=== PATIENT | male | born 1985 | race Caucasian/White ===

== ENCOUNTER 2018-06-14 06:29 | Emergency (ER) | payer MEDICAID, SELFPAY ==
[2018-06-14 06:31] VITALS: BP 147/100; PULSE 64; RESP 16; TEMP 36.3; O2SAT 96
--- NOTE | 2018-06-14 06:33 | W.ED.GENAD ---
Discharge Plan Disposition Patient Disposition: HOME Condition: Stable Discharge Details Chief Complaint: EyeProblem Clinical Impression: Abrasion of cornea, left Primary Care Provider: None,None ED Provider: Dave Ward Home Meds and New Rx's Prescriptions: New erythromycin 5 mg/gram (0.5 %) ointment 1 applic OP TID 5 Days Qty: 1 RF: 0 Discharge Instructions Instructions: Corneal Abrasion (ED) Additional Instructions: if you are still symptomatic after 2 days follow up with optometry or ophthalmology you can take 1000mg tylenol and 600mg ibuprofen every 6 hours for pain as needed if you have severe worsening pain or vision changes return to the emergency department Medical Decision Making 32 yo male comes in with left eye pain. He states he woke up with tearing of his eye and pain of the medial left eye. 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 Doesn't use contacts, 20/20 on exam in both eyes. He has mild conjunctival injection of the left medial eye, no foreign body on exam, iop 10, perrl, no iritis, and has immediate relief of pain with tetracaine. Has a small 1mm or so corneal abrasion over the medial left conjunctiva. Will have him start abx ointment and advised if still symptomatic in 2 days to see gear nicker Differential Diagnosis corneal abrasion, conjuncitivits, foreign body HPI General Mode of arrival: ambulatory. Date/Time Provider Initiated Documentation: 06/14/18 06:30. Limitations to Documentation: no limitations. Information obtained by: patient. History of Present Illness 32 year old M presents to the emergency department with the chief complaint of left eye pain, described as moderate, Quality is described as aching, and is localized to the eyes and left. Patient started experiencing this day(s) (1) and it has been constant. No relieving factors improve symptom(s), No exacerbating factors reported . Patient notes no other symptoms.. Patient did receive the following treatments prior to arrival, none Related Data Home Medications Medication Instructions Recorded Confirmed erythromycin 1 applic OP TID 5 Days #1 gm 06/14/18 Previous Rx's Medication Instructions Recorded erythromycin 1 applic OP TID 5 Days #1 gm 06/14/18 Allergies Allergy/AdvReac Type Severity Reaction Status Date / Time No Known Allergies Allergy Unverified 06/14/18 06:35 Review of Systems Review of Systems All systems reviewed & are unremarkable except as noted in HPI and below Constitutional Denies chills and Denies fever(s) Cardiovascular Denies chest pain and Denies dyspnea Respiratory Denies cough and Denies dyspnea Gastrointestinal Denies abdominal pain, Denies nausea and Denies vomiting Musculoskeletal Denies joint swelling PFS Social History Smoking/Tobacco Use Status: Current every day Tobacco Type: cigarettes Drug use: Daily Substance use type: former substance user and marijuana Do you feel safe at home: Yes Do you feel safe in your relationship?: Yes Exam Const General: no acute distress Orientation: alert HENMT Head: normal to inspection Ears: external ears normal General nose exam: external nose normal Mouth: moist mucous membranes Eyes Periorbital: periorbital findings normal Eyelids: eyelids normal Pupils: PERRL Neck Neck: normal visual inspection Resp Effort & Inspection: normal respiratory effort and able to speak in complete sentences Cardio Rate: regular rate Skin General skin exam: no rashes or lesions noted Neuro General: alert and oriented x3 Extrem General: normal to inspection Psych Mental Status: mental status grossly normal
--- NOTE | 2018-06-14 06:43 | ED.GENADUL_ITS ---
Discharge Plan Disposition Patient Disposition: HOME Condition: Stable Discharge Details Chief Complaint: EyeProblem Clinical Impression: Abrasion of cornea, left Primary Care Provider: None,None ED Provider: Dave Ward Home Meds and New Rx's Prescriptions: New erythromycin 5 mg/gram (0.5 %) ointment 1 applic OP TID 5 Days Qty: 1 RF: 0 Discharge Instructions Instructions: Corneal Abrasion (ED) Additional Instructions: if you are still symptomatic after 2 days follow up with optometry or ophthalmology you can take 1000mg tylenol and 600mg ibuprofen every 6 hours for pain as needed if you have severe worsening pain or vision changes return to the emergency department Medical Decision Making 32 yo male comes in with left eye pain. He states he woke up with tearing of his eye and pain of the medial left eye. 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 Doesn't use contacts, 20/20 on exam in both eyes. He has mild conjunctival injection of the left medial eye, no foreign body on exam, iop 10, perrl, no iritis, and has immediate relief of pain with tetracaine. Has a small 1mm or so corneal abrasion over the medial left conjunctiva. Will have him start abx ointment and advised if still symptomatic in 2 days to see dictaphone typist Differential Diagnosis corneal abrasion, conjuncitivits, foreign body HPI General Mode of arrival: ambulatory . Date/Time Provider Initiated Documentation: 06/14/18 06:30 . Limitations to Documentation: no limitations . Information obtained by: patient . History of Present Illness 32 year old M presents to the emergency department with the chief complaint of left eye pain, described as moderate, Quality is described as aching, and is localized to the eyes and left. Patient started experiencing this day(s) (1) and it has been constant. No relieving factors improve symptom(s), No exacerbating factors reported . Patient notes no other symptoms.. Patient did receive the following treatments prior to arrival, none Related Data Home Medications Medication Instructions Recorded Confirmed erythromycin 1 applic OP TID 5 Days #1 gm 06/14/18 Previous Rx's Medication Instructions Recorded erythromycin 1 applic OP TID 5 Days #1 gm 06/14/18 Allergies Allergy/AdvReac Type Severity Reaction Status Date / Time No Known Allergies Allergy Unverified 06/14/18 06:35 Review of Systems Review of Systems All systems reviewed & are unremarkable except as noted in HPI and below Constitutional Denies chills and Denies fever(s) Cardiovascular Denies chest pain and Denies dyspnea Respiratory Denies cough and Denies dyspnea Gastrointestinal Denies abdominal pain, Denies nausea and Denies vomiting Musculoskeletal Denies joint swelling PFS Social History Smoking/Tobacco Use Status: Current every day Tobacco Type: cigarettes Drug use: Daily Substance use type: former substance user and marijuana Do you feel safe at home: Yes Do you feel safe in your relationship?: Yes Exam Const General: no acute distress Orientation: alert HENMT Head: normal to inspection Ears: external ears normal General nose exam: external nose normal Mouth: moist mucous membranes Eyes Periorbital: periorbital findings normal Eyelids: eyelids normal Pupils: PERRL Neck Neck: normal visual inspection Resp Effort & Inspection: normal respiratory effort and able to speak in complete sentences Cardio Rate: regular rate Skin General skin exam: no rashes or lesions noted Neuro General: alert and oriented x3 Extrem General: normal to inspection Psych Mental Status: mental status grossly normal
[2018-06-14 06:51] VITALS: BP 132/88; PULSE 62; RESP 16; TEMP 36.5; O2SAT 97
== END 2018-06-14 06:50 | disposition home or self-care (01) ==
PROVIDERS: Emergency Provider Emergency Medicine
DX: S05.02XA Injury of conjunctiva and corneal abrasion without foreign body, left eye, initial encounter (principal)
CPT/HCPCS: 99283

== ENCOUNTER 2018-09-18 12:16 | Emergency (ER) | payer MEDICAID, SELFPAY ==
[2018-09-18 12:19] VITALS: BP 159/92; PULSE 66; RESP 18; TEMP 36.6; O2SAT 97
--- NOTE | 2018-09-18 12:29 | W.ED.GENAD ---
Discharge Plan Disposition Patient Disposition: HOME Condition: Stable Discharge Details Chief Complaint: Nk/Back Pain Clinical Impression: Lumbar strain Primary Care Provider: None,None ED Provider: Dave Ward Home Meds and New Rx's Prescriptions: New diazepam [Valium] 5 mg tablet 5 mg PO TID-QID PRN (Reason: muscle spasm) Qty: 14 RF: 0 Discharge Instructions Instructions: Diazepam (By mouth), Low Back Strain (ED) Additional Instructions: you can take 1000mg tylenol and 600mg ibuprofen every 6 hours for pain as needed do not drink alcohol or operate heavy machinery if you take the valium follow up with a primary care provider if symptoms continue in 1-2 weeks, I have referred you to see a primary care if you have fevers, inability to urinate or new symptoms such as abdominal pain return to the emergency department physical therapy can help with this pain, call them to arrange an appointment Stand Alone Forms: Physical Therapy Referral Medical Decision Making 33 yo male with no chronic medical problems though states he has a hx of disc herniations, no prior surgeries, denies ivdu, comes in with worsening back pain and thinks it may have started after he was shoveling rocks. Denies falls or other trauma. He is ambulating with normal gait and no saddle anesthesia on exam, no findings to suggest cauda equina and no fevers or infectious symptoms so doubt sea. Has no abdominal tenderness to suggest pathology such as appendicitis and no flank pain to suggest kidney stone. Pain is throughout the lower back and has full rom, does have pain in lower back left lateral to midline, could be muscle strain vs spasm also could be disc herniation. will have him take nsaids and tylenol and try a muscle relaxer. will refer for pcp within 1-2 weeks. return precautions given Differential Diagnosis disc herniation, strain, muscle spasm HPI General Mode of arrival: ambulatory. Date/Time Provider Initiated Documentation: 09/18/18 12:17. Limitations to Documentation: no limitations. Information obtained by: patient. History of Present Illness 33 year old M presents to the emergency department with the chief complaint of back pain, described as moderate, Quality is described as aching, Patient reports radiation to back. Patient started experiencing this week(s) (1) and it has been constant. No relieving factors improve symptom(s), No exacerbating factors reported . Patient notes no other symptoms.. Patient did receive the following treatments prior to arrival, none Related Data Home Medications Medication Instructions Recorded Confirmed diazepam [Valium] 5 mg PO TID-QID PRN #14 tab 09/18/18 Previous Rx's Medication Instructions Recorded diazepam [Valium] 5 mg PO TID-QID PRN #14 tab 09/18/18 Allergies Allergy/AdvReac Type Severity Reaction Status Date / Time No Known Allergies Allergy Unverified 09/18/18 12:22 General Stated Complaint: Nk/Back Pain CRISTHIAN: 4 Review of Systems Review of Systems All systems reviewed & are unremarkable except as noted in HPI and below Constitutional Denies chills, Denies fever(s) and Denies weakness Cardiovascular Denies chest pain and Denies dyspnea Respiratory Denies cough and Denies dyspnea Gastrointestinal Denies abdominal pain, Denies nausea and Denies vomiting Integumentary/Breasts Denies rash Neurologic Denies weakness COUNT INCLUDES THE [facility] Social History Smoking/Tobacco Use Status: Current every day Tobacco Type: cigarettes Drug use: Daily Substance use type: former substance user and marijuana Do you feel safe at home: Yes Do you feel safe in your relationship?: Yes Exam Const General: no acute distress Orientation: alert HENMT Head: normal to inspection Ears: external ears normal General nose exam: external nose normal Mouth: moist mucous membranes Eyes General: appearance normal, both eyes and all related structures Neck Neck: normal visual inspection Resp Effort & Inspection: normal respiratory effort and able to speak in complete sentences Cardio Rate: regular rate Back/Spine/Pelvis Back: no CVA tenderness Skin General skin exam: no rashes or lesions noted Neuro General: alert and oriented x3 Extrem General: normal to inspection Psych Mental Status: mental status grossly normal Course Vital Signs Temperature 36.6 C 09/18/18 12:19 Pulse 66 09/18/18 12:19 Respiratory Rate 18 09/18/18 12:19 Blood Pressure 159/92 H 09/18/18 12:19 Pulse Oximetry 97 09/18/18 12:19 Temperature 36.6 C 09/18/18 12:19 Temperature Source Temporal Artery Scan 09/18/18 12:19 Pulse 66 09/18/18 12:19 Respiratory Rate 18 09/18/18 12:19 Respiratory Effort Non-Labored 09/18/18 12:21 Blood Pressure 159/92 H 09/18/18 12:19 Blood Pressure Position Sitting 09/18/18 12:19 Pulse Oximetry 97 09/18/18 12:19 Oxygen Delivery Method Room Air 09/18/18 12:19 Oxygen Flow Rate 0 09/18/18 12:19 Pain Level 4 09/18/18 12:21
[2018-09-18 12:35] VITALS: BP 159/92; PULSE 66; RESP 18; TEMP 36.6; O2SAT 97
--- NOTE | 2018-09-18 12:35 | ED.GENADUL_ITS ---
Discharge Plan Disposition Patient Disposition: HOME Condition: Stable Discharge Details Chief Complaint: Nk/Back Pain Clinical Impression: Lumbar strain Primary Care Provider: None,None ED Provider: Dave Ward Home Meds and New Rx's Prescriptions: New diazepam [Valium] 5 mg tablet 5 mg PO TID-QID PRN (Reason: muscle spasm) Qty: 14 RF: 0 Discharge Instructions Instructions: Diazepam (By mouth), Low Back Strain (ED) Additional Instructions: you can take 1000mg tylenol and 600mg ibuprofen every 6 hours for pain as needed do not drink alcohol or operate heavy machinery if you take the valium follow up with a primary care provider if symptoms continue in 1-2 weeks, I have referred you to see a primary care if you have fevers, inability to urinate or new symptoms such as abdominal pain return to the emergency department physical therapy can help with this pain, call them to arrange an appointment Stand Alone Forms: Physical Therapy Referral Medical Decision Making 33 yo male with no chronic medical problems though states he has a hx of disc herniations, no prior surgeries, denies ivdu, comes in with worsening back pain and thinks it may have started after he was shoveling rocks. Denies falls or other trauma. He is ambulating with normal gait and no saddle anesthesia on exam, no findings to suggest cauda equina and no fevers or infectious symptoms so doubt sea. Has no abdominal tenderness to suggest pathology such as appendicitis and no flank pain to suggest kidney stone. Pain is throughout the lower back and has full rom, does have pain in lower back left lateral to midline, could be muscle strain vs spasm also could be disc herniation. will have him take nsaids and tylenol and try a muscle relaxer. will refer for pcp within 1-2 weeks. return precautions given Differential Diagnosis disc herniation, strain, muscle spasm HPI General Mode of arrival: ambulatory . Date/Time Provider Initiated Documentation: 09/18/18 12:17 . Limitations to Documentation: no limitations . Information obtained by: patient . History of Present Illness 33 year old M presents to the emergency department with the chief complaint of back pain, described as moderate, Quality is described as aching, Patient reports radiation to back. Patient started experiencing this week(s) (1) and it has been constant. No relieving factors improve symptom(s), No exacerbating factors reported . Patient notes no other symptoms.. Patient did receive the following treatments prior to arrival, none Related Data Home Medications Medication Instructions Recorded Confirmed diazepam [Valium] 5 mg PO TID-QID PRN #14 tab 09/18/18 Previous Rx's Medication Instructions Recorded diazepam [Valium] 5 mg PO TID-QID PRN #14 tab 09/18/18 Allergies Allergy/AdvReac Type Severity Reaction Status Date / Time No Known Allergies Allergy Unverified 09/18/18 12:22 General Stated Complaint: Nk/Back Pain CRISTHIAN: 4 Review of Systems Review of Systems All systems reviewed & are unremarkable except as noted in HPI and below Constitutional Denies chills, Denies fever(s) and Denies weakness Cardiovascular Denies chest pain and Denies dyspnea Respiratory Denies cough and Denies dyspnea Gastrointestinal Denies abdominal pain, Denies nausea and Denies vomiting Integumentary/Breasts Denies rash Neurologic Denies weakness [facility] Social History Smoking/Tobacco Use Status: Current every day Tobacco Type: cigarettes Drug use: Daily Substance use type: former substance user and marijuana Do you feel safe at home: Yes Do you feel safe in your relationship?: Yes Exam Const General: no acute distress Orientation: alert HENMT Head: normal to inspection Ears: external ears normal General nose exam: external nose normal Mouth: moist mucous membranes Eyes General: appearance normal, both eyes and all related structures Neck Neck: normal visual inspection Resp Effort & Inspection: normal respiratory effort and able to speak in complete sentences Cardio Rate: regular rate Back/Spine/Pelvis Back: no CVA tenderness Skin General skin exam: no rashes or lesions noted Neuro General: alert and oriented x3 Extrem General: normal to inspection Psych Mental Status: mental status grossly normal Course Vital Signs Temperature 36.6 C 09/18/18 12:19 Pulse 66 09/18/18 12:19 Respiratory Rate 18 09/18/18 12:19 Blood Pressure 159/92 H 09/18/18 12:19 Pulse Oximetry 97 09/18/18 12:19 Temperature 36.6 C 09/18/18 12:19 Temperature Source Temporal Artery Scan 09/18/18 12:19 Pulse 66 09/18/18 12:19 Respiratory Rate 18 09/18/18 12:19 Respiratory Effort Non-Labored 09/18/18 12:21 Blood Pressure 159/92 H 09/18/18 12:19 Blood Pressure Position Sitting 09/18/18 12:19 Pulse Oximetry 97 09/18/18 12:19 Oxygen Delivery Method Room Air 09/18/18 12:19 Oxygen Flow Rate 0 09/18/18 12:19 Pain Level 4 09/18/18 12:21
--- NOTE | 2018-09-18 12:38 | NUR.NOTE ---
referral sent to [facility] to establish 1-2 wks for back pain. Nursing Note:
== END 2018-09-18 12:41 | disposition home or self-care (01) ==
PROVIDERS: Emergency Provider Emergency Medicine
DX: S39.012A Strain of muscle, fascia and tendon of lower back, initial encounter (principal); X50.0XXA Overexertion from strenuous movement or load, initial encounter
CPT/HCPCS: 99283

== ENCOUNTER 2024-09-22 23:13 | Emergency (ER) | payer SELFPAY ==
[2024-09-22 23:17] VITALS: BP 178/116; PULSE 72; RESP 18; TEMP 35.8; O2SAT 97
--- NOTE | 2024-09-22 23:29 | ED.GENADUL_ITS ---
Discharge Plan Disposition Patient Disposition: Home Condition: Good Discharge Details Clinical Impression: Dermatitis due to plants, including poison donna, sumac, and oak Primary Care Provider: None,None ED Provider: Dave Multani and New Rx's Prescriptions: New prednisone 20 mg tablet 40 mg PO DAILY Qty: 8 0RF Discharge Instructions Instructions: Poison Donna, Poison Sad[place], Poison Sumac ED Additional Instructions: There is a soap called Zanfel which you may obtain [id number] and use to help remove the oil from the skin. You should take diphenhydramine 25 to 50 mg every 6-8 hours to control the itching. The prescribed prednisone will help blunt the reaction. Follow-up with primary care next week if not improving. Return to ED for any involvement of mucosa or eyes, difficulty breathing, other concerns. HPI General Mode of arrival: ambulatory . Date/Time Provider Initiated Documentation: 09/22/24 23:29 . Limitations to Documentation: no limitations . Information obtained by: patient and RN notes reviewed . HPI Narrative: Patient presents to ED with complaint of itching and rash. Patient reports that he first noticed symptoms about 24 hours ago. Had done some outside work with a friend but does not specifically recall getting into poison donna or oak. Initially noticed on his feet and hands but now has a diffusely involving torso and genitals. He has tried calamine lotion without relief. Has not taken anything orally. Denies any type of throat swelling or difficulty breathing, no chest or abdominal pain, no vomiting or diarrhea, no fever. Related Data Home Medications ?Medication ?Instructions ?Recorded ?Confirmed prednisone 20 mg tablet 40 mg (2 x 20 mg) PO DAILY # 8 tabs 09/22/24 Previous Rx's ?Medication ?Instructions ?Recorded prednisone 20 mg tablet 40 mg (2 x 20 mg) PO DAILY # 8 tabs 09/22/24 Allergies Allergy/AdvReac Type Severity Reaction Status Date / Time No Known Allergies Allergy Unverified 09/22/24 23:22 General Stated Complaint: RashLesion CRISTHIAN: 5 Exam Narrative Exam Narrative: Const: WDWN male in NAD. VS per triage. HEENT: NC/AT. Normal facial exam. Neck: Supple. Trachea midline. Lungs: Normal respiratory effort. : Deferred. Neuro: A+O x 3. Normal speech, mentation, gait. Cranial nerves II - XII grossly intact. No gross motor or sensory deficit. Ext: No C/C/E. Skin: Erythematous raised rash some areas in linear pattern, few small vesicles, some areas involving torso and proximal extremities covered in calamine and difficult to see. Course Vital Signs Vital signs: Vital Signs Temperature 96.5 F L 09/22/24 23:17 Pulse 72 09/22/24 23:17 Respiratory Rate 18 09/22/24 23:17 Blood Pressure 178/116 H 09/22/24 23:17 Pulse Oximetry 97 09/22/24 23:17 Temperature 96.5 F L 09/22/24 23:17 Temperature Source Tympanic 09/22/24 23:17 Pulse 72 09/22/24 23:17 Respiratory Rate 18 09/22/24 23:17 Blood Pressure 178/116 H 09/22/24 23:17 Blood Pressure Position Supine 09/22/24 23:17 Pulse Oximetry 97 09/22/24 23:17 Oxygen Delivery Method Room Air 09/22/24 23:17 Oxygen Flow Rate 0 09/22/24 23:17 Pain Level 7 09/22/24 23:17 Medical Decision Making Patient presenting with rash and pruritus consistent with exposure to poison donna or similar plant. Has only used calamine lotion. Will provide diphenhydramine for his pruritus and prednisone to help with the reaction. Recommend buying Zanfel soap to use as directed and attempt to help with symptoms. Prescription for prednisone burst provided. Follow-up with primary care next week if needed. Return precautions provided. [facility] Social History Smoking/Tobacco Use Status: Current every day Tobacco Type: cigarettes and e- cigarettes Smoking risk assessment performed?: Yes Alcohol Intake: current Alcohol Intake frequency: 0-2 drinks per day Alcohol type: beer Drug use: Daily Substance use type: former substance user and marijuana Do you feel safe at home: Yes Do you feel safe in your relationship?: Yes PAWSS Have you Been Recently Intoxicated or Drunk Within the Last 30 days?: Yes Have you Ever Experienced Previous Episodes of Alcohol Withdrawal?: No Have you ever Experienced Withdrawal Seizures?: No Have you ever Experienced Delirium Tremens(DT)s?: No Have you ever undergone Alcohol Rehabilitation Treatment (i.e, inpt ot outpatient treatment programs)?: No Have you ever Experienced Blackouts?: No Have you ever Combined Alcohol with other Downers within the last 90 days?: No Have you ever Combined Alcohol with any other Substance of Abuse during the last 90 days?: No Positive Blood Alcohol level on Presentation? [PCS.BAL]: No Evidence of Increased Autonomic Activity (i.e. HR>120, tremor, sweating, agitation, nausea)?: No Result: 1
[2024-09-22] MEDS: diphenhydrAMINE 25 MG CAP 50 MG PO (23:50)
[2024-09-22] MEDS: predniSONE 20 MG TAB 40 MG PO (23:50)
[2024-09-23 00:09] VITALS: BP 178/116; PULSE 81; RESP 22; TEMP 36.2; O2SAT 98
== END 2024-09-23 00:46 | disposition home or self-care (01) ==
LOC: ER 09-23 00:26
PROVIDERS: Emergency Provider Emergency Medicine
DX: L23.7 Allergic contact dermatitis due to plants, except food (principal)
CPT/HCPCS: 99283 ×2; J7512

== ENCOUNTER 2024-10-22 05:56 | Emergency (ER) | payer SELFPAY ==
[2024-10-22 05:58] VITALS: BP 219/103; PULSE 88; RESP 21; TEMP 35.9; O2SAT 98
--- NOTE | 2024-10-22 06:00 | DI.CT_ITS ---
Exam(s) CT ABDOMEN PELVIS W EXAM: CT ABDOMEN PELVIS W CLINICAL HISTORY: R upper abd/back pain TECHNIQUE: Imaging Protocol: Axial computed tomography images with coronal and sagittal reformatted images were created and reviewed. CONTRAST MATERIAL: Intravenous: Omnipaque 350 Contrast volume:structured data in ml mL Oral: No COMPARISON: CT RENAL COLIC WO CONTRAST from 12/11/2011 CT RENAL COLIC WO CONTRAST from 12/21/2015 FINDINGS: ABDOMEN: Lung Bases: No acute abnormality. Liver: Normal density. There are several small round hypodensities seen in the liver. The largest measures 9 mm. They are too small for further characterization, but likely reflect small cysts. No suspicious hepatic lesions are seen. Portal, Superior Mesenteric, and Splenic Veins: Unremarkable. Gallbladder and Biliary Tract: No radiodense calculus or dilation. Pancreas: Normal density, no abnormal calcifications or inflammatory process. Spleen: Normal. Adrenals: No masses seen. Kidneys: Normal size, contour and axis. There is a 2 mm stone seen in the right aspect of the urinary bladder at the area of the right UVJ. There is mild dilatation of the renal collecting system and delayed enhancement of the right kidney. The findings are consistent with hydronephrosis. Note is made of a 2.3 cm simple cyst in the right kidney. No follow-up is recommended. Abdominal Aorta: Abdominal portion non-dilated. Minimal atherosclerosis is present. Bowel: No obstruction or bowel wall thickening. Appendix is unremarkable. There is no evidence of pneumatosis. The stomach is incompletely distended limiting evaluation. Peritoneal Cavity: No ascites, collection or mesenteric inflammatory response. No free air. Lymph Nodes: Within normal limits. Bones: Within normal limits for the patient's age. Soft Tissues: Unremarkable. PELVIS: Bladder: Symmetric distention, no gross wall thickening. Reproductive Organs: Unremarkable as visualized. Lymph Nodes: Within normal limits. Bones: Within normal limits for the patient's age. IMPRESSION: 1. There is a 2 mm stone on the bladder aspect on the bladder aspect of the right UVJ causing mild hydronephrosis. 2. The preliminary [facility] report was reviewed. RADIATION DOSE DELIVERED: 745.28mGy.cm Total DLP DATA REPOSITORY: All CT scans at this facility are submitted to the National Radiology Data Registry (NRDR) Dose Index Registry (DIR) with the [employer] ([employer]). RADIATION OPTIMIZATION: All CT scans at this facility use at least one of these dose optimization techniques: automated exposure control; mA and/or kV adjustment per patient size (includes targeted exams where dose is matched to clinical indication); or iterative reconstruction.
--- NOTE | 2024-10-22 06:00 | W.ED.GENAD ---
Discharge Plan Disposition Patient Disposition: Home Condition: Good Discharge Details Clinical Impression: Right distal ureteral calculus Primary Care Provider: None,None ED Provider: Dave Multani Meds and New Rx's Prescriptions: New tamsulosin 0.4 mg capsule 0.4 mg PO DAILY Qty: 14 0RF Discharge Instructions Instructions: Kidney Stone, Adult ED Additional Instructions: You were seen for right sided pain and found to have a kidney stone that hopefully will pass on its own. You should drink plenty of fluids and take the tamsulosin to help the stone pass. You may alternate Tylenol with Motrin every 4 hours if needed for pain. Strain your urine so you know when you pass the stone. If you have not passed the stone within the next week you should follow up with urology. Your blood pressure is quite elevated here and it is likely you have underlying high blood pressure. You should really consider establishing care with a primary care physician and have this evaluated. Untreated high blood pressure can lead to stroke and heart attacks. Return to ED for fever, worsening pain, vomiting, other concerns. Referrals: Mike Duckworth MD [ [facility] STAFF PHYSICIAN, Urology] [facility] General Mode of arrival: ambulatory. Date/Time Provider Initiated Documentation: 10/22/24 05:59. Limitations to Documentation: no limitations. Information obtained by: patient and RN notes reviewed. HPI Narrative: Patient presents to ED with right sided abdominal and back pain. Pain began last night, worse this morning. He denies any N/V/D. No fever that he is aware of. No urinary symptoms and no blood in his urine. No chest pain, trouble breathing and no increase pain with breathing. No prevouis abdominal surgeries. Related Data Home Medications ?Medication ?Instructions ?Recorded ?Confirmed tamsulosin 0.4 mg capsule 0.4 mg PO DAILY #14 caps 10/22/24 Previous Rx's ?Medication ?Instructions ?Recorded tamsulosin 0.4 mg capsule 0.4 mg PO DAILY #14 caps 10/22/24 Allergies Allergy/AdvReac Type Severity Reaction Status Date / Time poison irene extract AdvReac Severe Skin Rash Verified 10/22/24 06:06 General CRISTHIAN: 5 Exam Narrative Exam Narrative: Const: WDWN male in NAD. VS per triage. HEENT: NC/AT. Normal facial exam. Neck: Supple. Trachea midline. Lungs: Normal respiratory effort. Lungs are clear. Cor: RRR without murmur. Good radial pulses. GI: Soft/ND. Tender in the RUQ with voluntary guarding. Back: Mild R CVAT Neuro: A+O x 3. Normal speech, mentation, gait. Cranial nerves II - XII grossly intact. No gross motor or sensory deficit. Ext: No C/C/E. Medical Decision Making Patient presenting with RUQ and right lumbar pain that started last night and is worse this morning. He is very tender in the RUQ, with some mild tenderness in the upper lumbar area, ? CVAT. He looks uncomfortable but not toxic. Suspect gallbladder as culprit, though kidney infection/stone also possible. Will make NPO, place IV and start fluids. Toradol for pain. Labs and CT ordered. 06:50 - Patient's labs look good, minimally elevated WBC. CT scan per my read suggests right UVJ stone with hydro; radiology read pending. Urine pending. 7:10 - CT read by radiology confirms UVJ stone with hydro. Urine with large blood only, no infection. Patient will be started on tamsulosin. He is pain free after Toradol. Discussed treatment of stones and need for follow up with urology if he does not pass stone in the next week. Also discussed he very high blood pressure and suggested getting PCP. Patient states he does not like going to doctors despite risk of stroke and heart attack. Return precautions provided. Imaging Data Radiologic Study: Attestation: I personally reviewed and interpreted this imaging study as follows: Imaging: CT Scan My impression: see [facility] Lab Data Lab results reviewed: Yes I reviewed the patient's lab results. Lab results narrative: see [facility] All Active Problems (Updated 10/22/24 @ 07:04 by Dave Multani MD) Right distal ureteral calculus (Acute) Social History Smoking/Tobacco Use Status: Current every day Tobacco Type: cigarettes and e-cigarettes Smoking risk assessment performed?: Yes Alcohol Intake: current Alcohol Intake frequency: 0-2 drinks per day Alcohol type: beer and hard liquor Drug use: Daily Substance use type: former substance user and marijuana Housing: house Do you feel safe at home: Yes Do you feel safe in your relationship?: Yes
[2024-10-22] MEDS: Ketorolac 15 MG/ML VIAL IVP (06:26)
[2024-10-22] MEDS: Normal Saline 1,000 ML 1000 ML IV (06:26)
[2024-10-22] MEDS: Omnipaque 350 MG/ML 100 ML BTL IJ (06:26)
[2024-10-22] MEDS: Normal Saline Flush 10 ML SYR IVP (06:28)
[2024-10-22 06:32] LABS: Abs Immature Grans 0.04 10^3/uL (0.0-0.06); HCT 48.6 % (40.0-50.0); HGB 15.5 g/dL (13.5-17.5); Immature Grans % 0.4 %; MCH 27.2 pg (27.0-33.0); MCHC 31.9 % (32.0-36.0); MCV 85 fL (80-95); MPV 10.4 fL (8.0-11.0); Platelet Count 214 10^3/uL (130-400); RBC 5.70 10^6/uL (4.36-5.78); RDW 14.9 % (11.8-14.1); RDW-SD 46.1 fL; WBC 11.42 10^3/uL (4.4-10.8)
[2024-10-22 06:47] LABS: ALT 48 U/L (16-63); AST 28 U/L (15-37); Albumin 4.0 g/dL (3.4-5.0); Alkaline Phosphatase 49 U/L (46-116); Anion Gap 6.8 mmol/L (3-11); BUN 16 mg/dL (7-18); Bilirubin, Total 0.7 mg/dL (0.2-1.0); CO2 29.2 mmol/L (21.0-32.0); Calcium 8.8 mg/dL (8.5-10.1); Chloride 104 mmol/L (98-107); Estimated GFR 72.11 (mL/min/1.73m2); Glucose 112 mg/dL (74-106); Lipase 61 U/L (<78); Potassium 3.8 mmol/L (3.5-5.1); Sodium 140 mmol/L (136-145); Total Protein 7.3 g/dL (6.4-8.2)
[2024-10-22 06:57] LABS: Glucose Negative (Negative)
--- NOTE | 2024-10-22 06:58 | DI.[facility]_ITS ---
PROCEDURE INFORMATION: Exam: CT Abdomen And Pelvis With Contrast Exam date and time: 10/22/2024 6:28 AM Age: 39 years old Clinical indication: Abdominal pain and other: R flank; Localized; Right upper quadrant (ruq); Ruq pain, R flank pain TECHNIQUE: Imaging protocol: Computed tomography of the abdomen and pelvis with contrast. Radiation optimization: All CT scans at this facility use at least one of these dose optimization techniques: automated exposure control; mA and/or kV adjustment per patient size (includes targeted exams where dose is matched to clinical indication); or iterative reconstruction. Contrast material: OMNIPAQUE 350; Contrast volume: 100 ml; Contrast route: INTRAVENOUS (IV); COMPARISON: No relevant prior studies available. FINDINGS: Limitations: Mild motion artifact. Liver: Low attenuation lesions in the liver too small to accurately characterize on CT. Gallbladder and biliary ducts: Distended gallbladder. Pancreas: No CT evidence for acute pancreatitis. Spleen: Mild splenomegaly. Adrenal glands: Adrenal thickening. Kidneys and ureters: Right renal cyst. Right hydroureteronephrosis with perinephric stranding. Delayed right renal parenchymal enhancement as compared to the left. 3 mm calculus at or just distal to the right ureterovesical junction. No left hydronephrosis. Stomach and bowel: No intestinal obstruction is evident. Fluid in nondilated small bowel, nonspecific. Areas of apparent mural thickening in the colon commensurate with underdistention. Appendix: No evidence of appendicitis. Intraperitoneal space: No free air. Vasculature: No abdominal aortic aneurysm. Lymph nodes: Nonspecific mesenteric and retroperitoneal lymph nodes. Urinary bladder: No acute findings. Reproductive: No acute findings. Bones/joints: No pertinent acute abnormality seen. Soft tissues: No pertinent acute abnormality seen. IMPRESSION: 1. Right hydroureteronephrosis with calculus at or just distal to the ureterovesical junction as described above. 2. Additional findings as above. Dictated and Authenticated by: Daniela Lopez MD. Orderin Rangel Acosta MD
[2024-10-22 07:11] LABS: C & S Indicated? No; RBC 20-50 HPF (0-2); WBC 0-2 HPF (0-5)
[2024-10-22 07:28] VITALS: BP 175/118; PULSE 87; RESP 18; O2SAT 98
--- NOTE | 2024-10-22 07:31 | NUR.NOTE ---
Nursing Note: PT declined medication this RN gave education on medication says he doesnt take medications he doesn't know.
== END 2024-10-22 07:34 | disposition home or self-care (01) ==
LOC: ER 07:10
PROVIDERS: Emergency Provider Emergency Medicine
DX: N20.1 Calculus of ureter (principal); R10.11 Right upper quadrant pain; Z72.0 Tobacco use; R03.0 Elevated blood-pressure reading, without diagnosis of hypertension
CPT/HCPCS: 80053; 83690; 96361; 96374; 99285; 74177; 81003; 81015; 85025; 99284; J1885; J3490

== ENCOUNTER 2024-10-23 09:28 | Emergency (ER) | payer SELFPAY ==
[2024-10-23 09:29] VITALS: BP 198/115; PULSE 80; RESP 16; TEMP 36.4; O2SAT 95
[2024-10-23 10:01] VITALS: BP 198/115; PULSE 80; RESP 16; TEMP 36.4; O2SAT 95
--- NOTE | 2024-10-23 10:16 | W.ED.GENAD ---
Discharge Plan Disposition Patient Disposition: Home Condition: Stable Discharge Details Clinical Impression: Right distal ureteral calculus Primary Care Provider: None,None ED Provider: Reece Bales Home Meds and New Rx's Prescriptions: No Action ketorolac 10 mg tablet 10 mg PO TID PRN (Reason: pain) 5 Days Qty: 15 0RF Rx Instructions: Do not use NSAIDs when taking this med. May take first dosage this evening. Alternate with tylenol tamsulosin 0.4 mg capsule 0.4 mg PO DAILY Qty: 14 0RF Discharge Instructions Instructions: Kidney Stone, Adult ED, Kidney stone diet Additional Instructions: You were seen in the emergency department for your kidney stone pain. We have provided you with intramuscular ketorolac. Please report upstairs to your urology visit, this was the plan to give you further pain medicine at your 11 AM appointment and is much more effective to see the specialty for your specific diagnosis. Please return to the emergency department for complete urinary obstruction, developing fever, nausea and weakness. Discharge Data Discharge Date/Time-TO BE ENTERED AT DEPARTURE: 10/23/24 10:27 HPI General Date/Time Provider Initiated Documentation: 10/23/24 09:44. HPI Narrative: 39 year-old male presents to ED today by POV/ambulating with a chief complaint of R sided abdominal pain since yesterday- diagnosed with a kidney stone- 2mm, with onset for the past few days. Patient has a Urology appointment at 11am set up from yesterdays ER visit, but wanted pain control before presenting to that office visit. Quality described as throbbing aching pain, no radiation to fever, intractable nausea/vomiting, bowel changes, endorses straining to push urine out, denies chest pain, shortness of breath. Severity is described as severe. Palliating factors include nothing specific- Tylenol and ibuprofen not working. Provoking factors include nothing specific. Patient not anticoagulated. Related Data Home Medications ?Medication ?Instructions ?Recorded ?Confirmed tamsulosin 0.4 mg capsule 0.4 mg PO DAILY #14 caps 10/22/24 10/23/24 ketorolac 10 mg tablet 10 mg PO TID PRN pain 5 days #15 10/23/24 10/23/24 tabs Previous Rx's ?Medication ?Instructions ?Recorded tamsulosin 0.4 mg capsule 0.4 mg PO DAILY #14 caps 10/22/24 ketorolac 10 mg tablet 10 mg PO TID PRN pain 5 days #15 10/23/24 tabs Allergies Allergy/AdvReac Type Severity Reaction Status Date / Time poison irene extract AdvReac Severe Skin Rash Verified 10/23/24 10:41 General Stated Complaint: FlankPain CRISTHIAN: 3 Review of Systems All systems reviewed & are unremarkable except as noted in HPI and below Exam Narrative Exam Narrative: GENERAL APPEARANCE: Well-nourished, non-toxic, awake and alert, atraumatic, no acute distress. SKIN: Warm, pink, dry, intact, without rashes/lesions/ulcerations. HEAD: Normocephalic, atraumatic, normal hair distribution for gender/age. EYES: Normal conjunctiva, no exudates on lids/lashes. ENT: Nares patent, no circumoral cyanosis, no facial swelling NECK: Supple, trachea midline, painless cervical ROM. LUNGS/CHEST: Non-labored respirations, normal A/P diameter, symmetrical expansion, no chest wall deformity HEART (CV/PV): No peripheral edema, no JVD. ABDOMEN: Soft, non-distended, no guarding, R CVA tenderness to percussion, R sided abdominal tenderness without peritoneal signs. MSK: Normal ROM, no swelling/deformity to bilateral UEs or LEs, moving all extremities without weakness, no cyanosis, spine midline without tenderness, normal curvature. NEURO: Mental Status AAOx4 - alert to person, place, time, events No facial droop, no forehead involvement. Motor: No focal weakness - strength 5/5 in bilateral UEs and LEs, proximal and distal, symmetric. Sensory: sensation intact to light touch globally. Gait normal: patient ambulated without ataxia into ED room. PSYCH: euthymic, cooperative, pleasant, appropriate speech Course Vital Signs Vital signs: Vital Signs Temperature 36.4 C L 10/23/24 09:29 Pulse 80 10/23/24 09:29 Respiratory Rate 16 10/23/24 09:29 Blood Pressure 198/115 H 10/23/24 09:29 Pulse Oximetry 95 10/23/24 09:29 Temperature 36.4 C L 10/23/24 10:01 Temperature Source Oral 10/23/24 10:01 Pulse 80 10/23/24 10:01 Respiratory Rate 16 10/23/24 10:01 Blood Pressure 198/115 H 10/23/24 10:01 Blood Pressure Position Sitting 10/23/24 10:01 Pulse Oximetry 95 10/23/24 10:01 Oxygen Delivery Method Room Air 10/23/24 10:01 Oxygen Flow Rate 0 10/23/24 10:01 Pain Level 10 10/23/24 10:01 Medical Decision Making This dictation utilizes [id number] dictation software and may contain unedited grammatical errors. 39 year-old male presents to ED today by POV/ambulating with a chief complaint of R sided abdominal pain since yesterday- diagnosed with a kidney stone- 2mm, with onset for the past few days. Patient has a Urology appointment at 11am set up from yesterdays ER visit, but wanted pain control before presenting to that office visit. Quality described as throbbing aching pain, no radiation to fever, intractable nausea/vomiting, bowel changes, endorses straining to push urine out, denies chest pain, shortness of breath. Severity is described as severe. Palliating factors include nothing specific- Tylenol and ibuprofen not working. Provoking factors include nothing specific. Patients' medical history: known renal stone. Family and social history: noncontributory. Pertinent exam findings / vital signs include R CVA tenderness to percussion, R sided abdominal tenderness without peritoneal signs, stable vitals. Differential / pathologies of concern include ureteral stone. Diagnostic studies of: -None - discussed with Urology - discharged to outpatient visit. Interventions of: -IM Ketorolac. ED Course/Assessment/Plan: 39-year-old male presents with a known ureteral stone 2 mm diagnosed yesterday and had close outpatient follow-up arranged at 11 AM today, has been taking Tylenol and Motrin and tamsulosin, states he just cannot take the pain so presented to ER for 60 minutes prior to his outpatient visit. I do not feel a workup is necessary with a 2 mm stone that will likely pass and the patient was arrange close follow-up to prevent repeat ER visits. I spoke with Madison Brown PA-C of Urology, she had planned to provide him with pain relief in outpatient visit. Counseled patient on need for specialty visit. Findings not consistent with sepsis, urinary retention. Disposition of Right Distal Ureteral Calculus. Patient verbalized understanding of the plan and return to ED criteria and engaged in shared decision making. Medical Records Medical records reviewed: Yes I reviewed the patient's medical records. PFSH All Active Problems (Updated 10/23/24 @ 11:35 by Madison Brown DNP) BMI 40.0-44.9, adult (Acute) Right distal ureteral calculus (Acute) Social History Smoking/Tobacco Use Status: Current every day Tobacco Type: cigarettes and e-cigarettes Smoking risk assessment performed?: Yes Alcohol Intake: current Alcohol Intake frequency: 0-2 drinks per day Alcohol type: beer and hard liquor Drug use: Daily Substance use type: former substance user and marijuana Housing: house Do you feel safe at home: Yes Do you feel safe in your relationship?: Yes
[2024-10-23] MEDS: Ketorolac 30 MG/ML VIAL IM (10:26)
== END 2024-10-23 10:27 | disposition home or self-care (01) ==
PROVIDERS: Emergency Provider Physician Assistant
DX: N20.1 Calculus of ureter (principal); Z68.41 Body mass index [BMI] 40.0-44.9, adult; R10.11 Right upper quadrant pain; I10 Essential (primary) hypertension
CPT/HCPCS: 99283; 99284; 96372; J1885